=== PATIENT | male | born 1995 | race Caucasian/White ===

== ENCOUNTER 2020-12-29 00:47 | Emergency (ER) | payer SELFPAY ==
--- NOTE | 2020-12-29 01:12 | NUR ---
CALLED PT IN LOBBY AND OUTSIDE. NO ANSWER.
--- NOTE | 2020-12-29 01:30 | NUR ---
CALLED AGAIN, NO ANSWER. PT LWBS.
--- NOTE | 2020-12-29 01:30 | NUR ---
PATIENT LEFT WITHOUT BEING SEEN BY DR. BINGHAM. NO FURTHER CARE PROVIDED FOR PATIENT.
== END 2020-12-29 01:30 | disposition left against medical advice (07) ==
LOC: MED 00:47
DX: Z53.21 Procedure and treatment not carried out due to patient leaving prior to being seen by health care provider (principal); M79.644 Pain in right finger(s)

== ENCOUNTER 2021-07-19 14:09 | Emergency (ER) | payer SELFPAY ==
[~2021-07-19] VITALS: Ht 162.6 cm; Wt 62.1 kg
[2021-07-19 14:11] VITALS: BP 120/71
--- NOTE | 2021-07-19 14:13 | NUR ---
25yo m c/o left lower leg pain from spider bite this morning. paiin 8/10, throbbing. pt noticed yellowish discharge which he drained. applied otc triple antibiotic. denies fever, diff breathing.
[2021-07-19] MEDS ORDERED: KETOROLAC 30 MG/ML VIAL IM ONE (14:35)
[2021-07-19] MEDS ORDERED: BACITRACIN OINT 500 UNITS/GM PKT TP ONE (14:35)
[2021-07-19] MEDS ORDERED: CEPH-588 PO (14:39)
[2021-07-19] MEDS ORDERED: NAPR-54 PO (14:39)
--- NOTE | 2021-07-19 14:55 | NUR ---
Patient discharged with v/s stable. Written and verbal after care instructions given and explained. Patient alert, oriented and verbalized understanding of instructions. Ambulatory with steady gait. All questions addressed prior to discharge. ID band removed. Patient advised to follow up with PMD. Rx of KEFLEX, NAPROSYN given. Patient educated on indication of medication including possible reaction and side effects. Opportunity to ask questions provided and answered.
[2021-07-19 14:56] VITALS: BP 118/68
== END 2021-07-19 14:56 | disposition home or self-care (01) ==
LOC: MED 14:09
DX: S81.852A Open bite, left lower leg, initial encounter (principal); L03.116 Cellulitis of left lower limb; F17.200 Nicotine dependence, unspecified, uncomplicated; W57.XXXA Bitten or stung by nonvenomous insect and other nonvenomous arthropods, initial encounter; Y93.89 Activity, other specified; Y92.89 Other specified places as the place of occurrence of the external cause; Y99.8 Other external cause status
CPT/HCPCS: 96372; 99283; J1885

== ENCOUNTER 2021-07-23 17:17 | Emergency (ER) | payer SELFPAY ==
[~2021-07-23] VITALS: Ht 162.6 cm; Wt 59.9 kg
[~2021-07-23 17:17] MED LIST: CEPH-588 PO; NAPR-54 PO
[2021-07-23 17:24] VITALS: BP 127/44
--- NOTE | 2021-07-23 18:11 | NUR ---
JUAN MARTIN EXAMINING PT
[2021-07-23] MEDS ORDERED: CLIN300C52 PO (18:19)
[2021-07-23] MEDS ORDERED: LIDOCAINE MPF 1% 5 ML ONE (18:36)
[2021-07-23] MEDS ORDERED: cefTRIAXone 1,000 MG VIAL ONE (18:36)
[2021-07-23] MEDS: cefTRIAXone 1,000 MG in LIDOCAINE MPF 1% 2.1 ML IM ONE (18:41)
[2021-07-23 18:49] VITALS: BP 127/44
--- NOTE | 2021-07-23 18:50 | NUR ---
Patient discharged with v/s stable. Written and verbal after care instructions given and explained. Patient alert, oriented and verbalized understanding of instructions. Ambulatory with steady gait. All questions addressed prior to discharge. ID band removed. Patient advised to follow up with PMD. Rx of clindamycin (sent) given. Patient educated on indication of medication including possible reaction and side effects. Opportunity to ask questions provided and answered. work note given
--- NOTE | 2021-07-23 18:53 | NUR ---
CRUTCHES ADJUSTED AND PT STATED THAT HE KNEW HOW TO USE THEM. PT DEMONSTRATED PROPER USE. PA NOTIFED.
== END 2021-07-23 18:50 | disposition home or self-care (01) ==
LOC: MED 17:17
DX: L03.116 Cellulitis of left lower limb (principal); Z79.899 Other long term (current) drug therapy
CPT/HCPCS: 96372; 99283; J0696; J2001

== ENCOUNTER 2021-11-24 02:59 | Emergency (ER) | payer MEDICAID ==
[~2021-11-24 02:59] MED LIST changes: +CLIN300C52 PO
--- NOTE | 2021-11-24 03:06 | NUR ---
PATIENT LEFT WITHOUT BEING SEEN BY DR. Mario. NO FURTHER CARE PROVIDED FOR PATIENT.
== END 2021-11-24 03:06 | disposition left against medical advice (07) ==
LOC: MED 02:59
DX: Z53.21 Procedure and treatment not carried out due to patient leaving prior to being seen by health care provider (principal)

== ENCOUNTER 2022-11-19 11:45 | Emergency (ER) | payer MEDICAID ==
[~2022-11-19] VITALS: Ht 175.3 cm; Wt 70.3 kg
[2022-11-19 11:46] VITALS: BP 137/90; PULSE 98; RESP 17; TEMP 97.4; O2SAT 99
--- NOTE | 2022-11-19 11:50 | NUR ---
PT BIBA TO BED 5
[2022-11-19 11:56] VITALS: O2SAT 99
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
[2022-11-19] MEDS ORDERED: KETOROLAC 30 MG/ML VIAL ONE (12:10)
[2022-11-19] MEDS ORDERED: KETOROLAC 15 MG/ML VIAL IM ONE (12:10)
[2022-11-19 13:56] VITALS: BP 115/70; PULSE 69; RESP 17; O2SAT 98
--- NOTE | 2022-11-19 13:56 | NUR ---
Patient discharged with v/s stable. Written and verbal after care instructions given and explained. Patient verbalized understanding. Ambulatory with steady gait. All questions addressed prior to discharge. Advised to follow up with PMD.
== END 2022-11-19 13:50 | disposition home or self-care (01) ==
LOC: MED 11:45
DX: S09.90XA Unspecified injury of head, initial encounter (principal); M54.2 Cervicalgia; Z79.899 Other long term (current) drug therapy; V19.88XA Pedal cyclist (driver) (passenger) injured in other specified transport accidents, initial encounter; Y93.89 Activity, other specified; Y92.89 Other specified places as the place of occurrence of the external cause; Y99.8 Other external cause status
CPT/HCPCS: 70450; 72125; 96372; 99285; J1885

== ENCOUNTER 2023-01-19 23:12 | Emergency (ER) | payer MEDICAID ==
[~2023-01-19] VITALS: Ht 172.7 cm; Wt 74.8 kg
[2023-01-19 23:20] VITALS: BP 126/72; PULSE 88; RESP 16; TEMP 97.4; O2SAT 99
[2023-01-19 23:40] VITALS: BP 126/72; PULSE 88; RESP 16; TEMP 97.4; O2SAT 99
== END 2023-01-19 23:40 ==
LOC: MED 23:12
DX: F11.10 Opioid abuse, uncomplicated (principal); Z79.899 Other long term (current) drug therapy
CPT/HCPCS: 99283

== ENCOUNTER 2023-10-06 21:31 | Emergency (ER) | payer MEDICAID ==
[~2023-10-06] VITALS: Ht 165.1 cm; Wt 56.7 kg
[~2023-10-06 21:31] MED LIST changes: +NAPR-337 PO; -NAPR-54 PO
[2023-10-06 21:56] VITALS: BP 122/50; PULSE 110; RESP 16; TEMP 98.2
[2023-10-06 22:45] LABS: ANION GAP 12.8 (8-16); CALCIUM 10.2 mg/dL (8.5-10.1); CARBON DIOXIDE 28.3 mmol/L (21-32); CREATININE 1.3 mg/dL (0.6-1.3); POTASSIUM 3.1 mmol/L (3.5-5.1)
[2023-10-06 22:49] LABS: BASOPHILS # (AUTO) 0.1 K/uL (0.00-0.22); BASOPHILS % (AUTO) 0.2 % (0.0-2.0); EOSINOPHILS % (AUTO) 0.1 % (0.0-4.0); HEMATOCRIT 33.3 % (36-52); HEMOGLOBIN 11.6 g/dL (12.0-18.0); LYMPHOCYTES # (AUTO) 1.9 K/uL (2.0-11.5); LYMPHOCYTES % (AUTO) 8.7 % (20.5-51.1); MEAN CORPUSCULAR HEMOGLOBIN 30 pg (27-31); MEAN CORPUSCULAR HGB CONC 35 g/dL (33-37); MEAN CORPUSCULAR VOLUME 85.6 fL (80-94); MONOCYTES # (AUTO) 1.5 K/uL (0.8-1.0); MONOCYTES % (AUTO) 6.7 % (1.7-9.3); NEUTROPHILS # (AUTO) 18.7 K/uL (1.8-7.7); NEUTROPHILS % (AUTO) 84.3 % (42.2-75.2); PLATELET COUNT (AUTO) 441 K/uL (140-450); RED BLOOD CELL COUNT(AUTO) 3.89 MIL/uL (4.20-6.10); RED CELL DISTRIBUTION WIDTH 13.7 % (11.6-13.7); WHITE BLOOD COUNT (AUTO) 22.2 K/uL (4.8-10.8)
[2023-10-06] MEDS: ONDANSETRON 4 MG ODT PO ONE (23:01)
[2023-10-07 02:23] LABS: APPEARANCE,URINE CLEAR (CLEAR); BILIRUBIN,URINE NEGATIVE (NEGATIVE); BLOOD, URINE TRACE-I (NEGATIVE); COLOR,URINE YELLOW (YELLOW); LEUKOCYTE ESTERASE ,URINE NEGATIVE (NEGATIVE); NITRITE, URINE NEGATIVE (NEGATIVE); PROTEIN,URINE 1+ (NEGATIVE); UGLUCOSE NEGATIVE (NEGATIVE); UROBILINOGEN,URINE 0.2 EU/dL (0.2 - 1)
[2023-10-07 02:25] LABS: BACTERIA,URINE >30 (MANY) /HPF (None Seen); RBC,URINE 0-5 /HPF (0-5); WBC,URINE 0-5 /HPF (0-5)
[2023-10-07 02:26] LABS: MUCUS,URINE 1+ /LPF (None Seen); SQUAMOUS EPITHELIAL CELL,UR 0-3 (FEW) /LPF (0-3 (FEW))
[2023-10-07] MEDS ORDERED: cefTRIAXone 2,000 MG VIAL ONE (02:33)
[2023-10-07] MEDS ORDERED: CEPH-588 PO (02:35)
[2023-10-07] MEDS: cefTRIAXone 2,000 MG in DEXTROSE 5% 100 ML IV ONE (02:46)
[2023-10-07] MEDS: POTASSIUM CHLORIDE 10 MEQ TABER PO ONE (03:05)
[2023-10-07] MEDS ORDERED: SULF-58 PO (03:09)
[2023-10-07 03:21] VITALS: BP 115/72; PULSE 76; RESP 18; TEMP 98.2; O2SAT 95
== END 2023-10-07 03:21 ==
LOC: MED 21:31
DX: N39.0 Urinary tract infection, site not specified (principal); R05.9 Cough, unspecified; R06.02 Shortness of breath; Z79.899 Other long term (current) drug therapy
CPT/HCPCS: 36415; 71045; 71275; 80048; 81001; 84484; 85025; 85379; 87040; 93005; 96365; 99285; J0696; Q0162; Q9967